=== PATIENT | female | born 1960 | race Two or more races ===

== ENCOUNTER 2017-10-27 16:17 | Emergency (ER) | payer OTHER ==
[~2017-10-27] VITALS: Ht 152.4 cm; Wt 81.6 kg
[~2017-10-27 16:17] MED LIST: IBUPROFEN800 MG PO; LIDODERM30 EA TP; LOSARTAN-HCTZ1 EAC1; NORVASC5 MG PO; ORPH100T PO
== END 2017-10-27 21:00 | disposition home or self-care (01) ==
LOC: ER 16:17
DX: I10 Essential (primary) hypertension (principal); R51 Headache